=== PATIENT | male | born 1980 | race African-American/Black ===

== ENCOUNTER 2017-04-03 23:54 | Emergency (ER) ==
[2017-04-03] MEDS ORDERED: SODIUM CHLORIDE 1,000 ML IV STA (23:58)
[2017-04-04 00:06] VITALS: BP 170/112; TEMP 99.2; BMI 24.3
--- NOTE | 2017-04-04 00:09 | ED.PDOC ---
General ED Provider: Dr. MADELINE CASEY-ER Chief Complaint: Chest Pain Stated Complaint: his chest started hurting about 30 min ago Time Seen by Physician: 00:07 Mode of Arrival: Walk-In Information Source: Patient, Family Exam Limitations: No limitations Nursing and Triage Documentation Reviewed and Agree: Yes Cardiovascular Complaint Exam - Chest Pain Complaint/Exam Onset: Sudden Duration: 30 min ago Symptoms Are: Still present Timing: Constant Initial Severity: Mild Current Severity: Moderate Location: Reports: Midsternal Pain Radiates: Reports: Back Character: Reports: Dull Alleviating: Reports: None Associated Signs and Symptoms: Denies: Diaphoresis, Nausea, Vomiting, Fever, Palpitations, Cough, Hemoptysis, Back pain, Abdominal pain, Dizziness, Short of air, Calf pain, Calf swelling Related Surgical History: Reports: None History of Healthcare-Acquired Pneumonia: Reports: No TAD Risk Factors: Reports: None Pulmonary Embolism Risk Factors: Reports: None Prior Care for this Complaint: No Recent Stress Test: No Recent Echo/LV Function: No JVD Present: No Subcutaneous Emphysema Present: No Diminshed Breath Sounds: No Reproducible Chest Wall Pain: No Bilateral Pulses Present: Yes Unequal Pulses Noted: No If Risk Factors for AMI/ACS Consider: EKG, Cardiac Enzymes, Oxygen, Aspirin 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 Quality Indicator For Non-Traumatic Chest Pain/Syncope: EKG Performed Review of Systems - Review Of Systems Constitutional: Reports: No symptoms Eyes: Reports: No symptoms Ears, Nose, Mouth, Throat: Reports: No symptoms Respiratory: Reports: No symptoms Cardiac: Reports: Chest pain GI: Reports: No symptoms : Reports: No symptoms Musculoskeletal: Reports: No symptoms Skin: Reports: No symptoms Neurological: Reports: No symptoms Endocrine: Reports: No symptoms Hematologic/Lymphatic: Reports: No symptoms All Other Systems: Reviewed and Negative Past Medical History - Past Medical History Previously Healthy: Yes Endocrine: Reports: Unknown Cardiovascular: Reports: Unknown Respiratory: Reports: Unknown Hematological: Reports: Unknown Gastrointestinal: Reports: Unknown Genitourinary: Reports: Unknown Neuro/Psych: Reports: Unknown Musculoskeletal: Reports: Unknown Cancer: Reports: Unknown - Surgical History General Surgical History: Reports: Unknown - Family History Family History: Reports: Unknown - Social History Smoking Status: Current every day smoker, Light tobacco smoker Hx Substance Use: No Alcohol Screening: None Lives: With family - Immunizations Tetanus Shot up to Date: (UNKNOWN) Physical Exam - Physical Exam Appearance: Well-appearing Pain Distress: Mild Eyes: ERNIE, EOMI, Conjunctiva clear ENT: Ears normal, Nose normal, Oropharynx normal Neck: Supple Respiratory: Airway patent, Breath sounds clear, Breath sounds equal, Respirations nonlabored Cardiovascular: RRR GI/: Soft, Nontender, No masses, Bowel sounds normal, No Organomegaly Musculoskeletal: Normal strength Skin: Warm Neurological: Sensation intact Psychiatric: Affect appropriate, Mood appropriate, Anxious Interpretation - Radiology Interpretation Radiology Interpretation By: ED Physician Radiology Results: Negative Exam Interpreted: CXR - EKG Interpretation Time of EKG #1: 00:10 Rate: Normal Rhythm: Sinus Ectopy: None [place]: NL ST Segment: Normal Interpretation: nsr Re-Evaluation - Re-Evaluation Time of Re-Evaluation: 00:22 Status: Improved Vital Signs Stable: Yes Pain Level: 1 Appearance: NAD Lungs: Clear Skin: Warm and Dry Neuro: Alert and Oriented X3 CV: RRR Physician Notification - Case Discussed Physician Notified: dr coleman--agreeable to accept Time of Notification: 00:23 Critical Care Note - Critical Care Note Total Time (mins): 20 Course - Course Hematology/Chemistry: 04/04/17 00:05 Orders, Labs, Meds: Lab Review 04/04/17 00:05 WBC 8.52 RBC 5.46 Hgb 17.0 Hct 47.9 MCV 87.7 MCH 31.1 H MCHC 35.5 H RDW Coeff of Vicky 13.3 Plt Count 243 Immature Gran % (Auto) 0.2 Neut % (Auto) 49.1 Lymph % (Auto) 38.6 Caroline % (Auto) 10.3 H Eos % (Auto) 0.9 Baso % (Auto) 0.9 Immature Gran # (Auto) 0.0 Neut # 4.2 Lymph # 3.3 Caroline # 0.9 Eos # 0.1 Baso # 0.1 Orders Category Date Time Status EKG-(ED ONLY) Stat CARDIO 04/03/17 23:57 Completed Power Saw Mechanic [ED RETAIL CUSTOMER SERVICE REPRESENTATIVE APPLIED] .ONCE EMERGENCY 04/03/17 23:57 Active ED IV/MEDIPORT/POWERPORT .ONCE EMERGENCY 04/03/17 23:58 Active AMYLASE Stat LAB 04/03/17 23:57 Received CBC W/ AUTO DIFF Stat LAB 04/03/17 23:57 Completed COMPREHENSIVE METABOLIC PANEL Stat LAB 04/03/17 23:57 Received CREATINE KINASE Stat LAB 04/03/17 23:57 Received LIPASE Stat LAB 04/03/17 23:57 Received TROPONIN I Stat LAB 04/03/17 23:57 Received 0.9 % Sodium Chloride [Saline Flush] MEDS 04/03/17 23:58 Ordered 1 syr IVF PRN PRN Aspirin [Aspirin Chewable] MEDS 04/04/17 00:13 Discontinued 324 mg .ROUTE .STK-MED ONE Aspirin [Aspirin Chewable] MEDS 04/04/17 00:11 Discontinued 324 mg PO ONCE STA Morphine Sulfate [Morphine 2 mg/ml Syringe] MEDS 04/04/17 00:13 Discontinued 2 mg .ROUTE .STK-MED ONE Morphine Sulfate [Morphine 2 mg/ml Syringe] MEDS 04/04/17 00:11 Discontinued 2 mg IVP ONCE STA Ondansetron HCl/Pf [Zofran 4 mg/2 ml] MEDS 04/04/17 00:11 Discontinued 4 mg IVP ONCE STA Sodium Chloride 0.9% [Sodium Chloride] 1,000 ml MEDS 04/03/17 23:58 Active IV 100 mls/hr CXR [CHEST, 1V AP ONLY] Stat RADS 04/04/17 00:10 Taken Medications Generic Name Dose Route Start Last Admin Trade Name Freq PRN Reason Stop Dose Admin Sodium Chloride 1,000 mls @ 100 mls/hr 04/03/17 23:58 Sodium Chloride IV 04/04/17 09:57 .Q10H STA Sodium Chloride 1 syr 04/03/17 23:58 Saline Flush IVF PRN PRN To flush IV Discontinued Medications Generic Name Dose Route Start Last Admin Trade Name Freq PRN Reason Stop Dose Admin Aspirin 324 mg 04/04/17 00:11 Aspirin Chewable PO 04/04/17 00:12 ONCE STA Morphine Sulfate 2 mg 04/04/17 00:11 Morphine 2 Mg/Ml Syringe IVP 04/04/17 00:12 ONCE STA Ondansetron HCl 4 mg 04/04/17 00:11 Zofran 4 Mg/2 Ml IVP 04/04/17 00:12 ONCE STA Vital Signs: Temp Pulse Resp BP Pulse Ox 04/03/17 23:55 99.2 F 77 28 H 170/112 H 99 NATALIYA Risk Score NATALIYA Risk Score: Risk Score Odds of by 30D 0 0.1 (0.1-0.2) 1 0.3 (0.2-0.3) 2 0.4 (0.3-0.5) 3 0.7 (0.6-0.9) 4 1.2 (1.0-1.5) 5 2.2 (1.9-2.6) 6 3.0 (2.5-3.6) 7 4.8 (3.8-6.1) Departure - Departure Time of Disposition: 00:23 Disposition: TSF SHORT-TRM HOSP Discharge Problem: Chest pain Instructions: Chest Pain (ED) Condition: Good Pt referred to PMD for follow-up: Yes Allergies/Adverse Reactions: Allergies No Known Drug Allergies Adverse Reaction (Verified 04/04/17 00:06) Home Medications: Ambulatory Orders 1 [No Reported Medications] 04/04/17 Transfer Form Completed: Yes Disposition Discussed With: Patient
[2017-04-04 00:11] LABS: BASOPHILS # (AUTO) 0.1 K/uL (0-0.2); BASOPHILS % (AUTO) 0.9 % (0.0-3.0); EOSINOPHILS # (AUTO) 0.1 K/ul (0.0-0.7); EOSINOPHILS % (AUTO) 0.9 % (0.0-7.0); HEMATOCRIT 47.9 % (42.0-52.0); IMMATURE GRANULOCYTE % (AUTO) 0.2 % (0.0-5.0); LYMPHOCYTES # (AUTO) 3.3 K/uL (0.60-3.4); LYMPHOCYTES % (AUTO) 38.6 (10.0-50.0); MEAN CORPUSCULAR HEMOGLOBIN 31.1 pg (27.0-31.0); MEAN CORPUSCULAR HGB CONC 35.5 (31.8-35.4); MEAN CORPUSCULAR VOLUME 87.7 fl (80.0-94.0); MONOCYTES # (AUTO) 0.9 K/uL (0.4-2.0); MONOCYTES % (AUTO) 10.3 (0-10); NEUTROPHILS # (AUTO) 4.2 K/ul (2.0-6.9); NEUTROPHILS % (AUTO) 49.1; PLATELET COUNT 243 10^3/uL (140-440); RED BLOOD COUNT 5.46 10^6/ul (4.70-6.10); WHITE BLOOD COUNT 8.52 K/ul (4.2-10.2)
[2017-04-04] MEDS ORDERED: ASPIRIN CHEWABLE PO STA (00:11)
[2017-04-04] MEDS ORDERED: ZOFRAN 4 MG/2 ML IVP STA (00:11)
[2017-04-04] MEDS ORDERED: MORPHINE 2 MG/ML SYRINGE IVP STA (00:11)
[2017-04-04] MEDS ORDERED: ASPIRIN CHEWABLE ONE (00:13)
[2017-04-04] MEDS ORDERED: MORPHINE 2 MG/ML SYRINGE ONE (00:13)
--- NOTE | 2017-04-04 00:45 | DI ---
EXAM: Chest, one-view HISTORY: Chest Pain FINDINGS: Cardiac and mediastinal contours are normal. Pulmonary vasculature is normal. Lungs are clear. Bony thorax is unremarkable. IMPRESSION: Within normal limits
[2017-04-04 00:53] LABS: ALBUMIN 4.7 g/dL (3.4-5.0); ALBUMIN/GLOBULIN RATIO 1.34; ANION GAP 22.6; BILIRUBIN,TOTAL 2.23 mg/dL (0.00-1.20); BUN/CREATININE RATIO 14.51; CALCIUM 10.8 mg/dL (8.2-10.2); CREATININE 1.24 mg/dL (0.60-1.10); POTASSIUM 3.6 mmol/L (3.5-5.1); TOTAL PROTEIN 8.2 g/dL (6.4-8.2); TROPONIN I 0.017 ng/ml (0.0000-0.4000)
[2017-04-04 00:55] LABS: CREATINE KINASE MB 3.7 ng/ml (0.0-3.6)
== END 2017-04-04 00:55 | disposition short-term general hospital (02) ==
LOC: ED 23:54
DX: R07.9 Chest pain, unspecified (principal); F17.210 Nicotine dependence, cigarettes, uncomplicated
CPT/HCPCS: 36415; 80053; 82150; 82550; 82553; 83690; 84484; 85025; 93005; 93010; 96361; 96374; 96375; 99285

== ENCOUNTER 2017-04-04 00:56 | Outpatient (CLI) ==
[2017-04-04 00:06] VITALS: BMI 24.3
== END 2017-04-04 00:57 | disposition home or self-care (01) ==
LOC: AMBL 00:56
PROVIDERS: ATTEND Family Medicine
DX: R07.9 Chest pain, unspecified (principal); R06.02 Shortness of breath

== ENCOUNTER 2017-04-07 06:52 | Outpatient (CLI) ==
--- NOTE | 2017-04-07 08:25 | STRESSECHO ---
Date of Test: 04/07/17 Reason for Exam: CHEST PAIN Ordering Physician: DAMON WILDER Current Medications: NO MEDICATIONS Physical Findings: S1, S2, NO S3 Resting EKG: SINUS RHYTHM/ NO ACUTE CHANGES Target Heart Rate: 157/185 STAGE MPH/GRADE HEART RATE BPM BLOOD PRESSURE mmhg RHYTHM S-T SEGMENT +/- UP DOWN SYMPTOMS,COMMENTS At Rest 80 118/76 SR X NONE 1 1.7/10% 130 128/80 SR X NONE 2 2.5/12% 145 130/78 SR X NONE 3 3.4/14% 4 4.2/16% 5 5.0/18% Immediately after 168 SR X FATIGUE Durations of Exercise: 8:00 Maximum Heart Rate Reached: 168 Reason for Termination: FATIGUE 3 MINUTES POST EXERCISE: HR 90 BPM, BP 132/80 MMHG INTERPRETATION: 100% OXYGEN SATURATION WITH EXERCISE ON ROOM AIR METS 10.1 1. NO EVIDENCE OF ISCHEMIA BY ST-T WAVE 2. NO CHEST PAIN OR CHEST DISCOMFORT 3. BLOOD PRESSURE RESPONSE: NORMAL AT REST AND WITH EXERCISE 4. NO ARRHYTHMIAS NORMAL LEFT VENTRICULAR CONTRACTILITY--RESTING AND POST EXERCISE MTDD
--- NOTE | 2017-04-07 08:28 | ECHOSTRESS ---
Date of Exam: 04/07/17 Ordering Physician: DAMON WILDER Reason for Echo: CHEST PAIN, STRESS TEST--NO ISCHEMIA M-Mode Normal Adult Results LV Dimensions Normal Adult Results AoV Opening excursions >1.6 LVEDD-base- 3.5-5.8 Ao root dimensions 2.0-3.7 LVESD-base- 3.1-4.6 L. Atrium dimensions 1.9-3.8 Post. Wall thickness 0.8-1.1 IV septum (thickness) 0.7-1.2 Post. Wall excursion 0.72-1.3 Septal motion Systolic motion R. Ventricular cavity 1.5-2.0 LVEF 60% Paradoxical septal wall motion 2-D: NORMAL LEFT VENTRICULAR CONTRACTILITY--RESTING AND POST EXERCISE M-MODE: MV: AV: TV: PV: CHAMBER SIZE: WALL MOTION: NORMAL LEFT VENTRICULAR CONTRACTILITY--RESTING AND POST EXERCISE PERICARDIUM: INTERPRETATION: 1. NORMAL LEFT VENTRICULAR CONTRACTILITY--RESTING AND POST EXERCISE MTDD
== END 2017-04-07 06:53 | disposition home or self-care (01) ==
LOC: CAR 06:52
PROVIDERS: ATTEND Internal Medicine
DX: R07.9 Chest pain, unspecified (principal); R10.13 Epigastric pain; Z82.49 Family history of ischemic heart disease and other diseases of the circulatory system